=== PATIENT | female | born 1980 | race African-American/Black ===

== ENCOUNTER 2017-09-13 09:19 | Emergency (ER) | payer MEDICAID ==
[~2017-09-13] VITALS: Ht 170.2 cm; Wt 146.5 kg
[2017-09-13 09:45] VITALS: BP 126/105
--- NOTE | 2017-09-13 09:49 | NUR ---
PATIENT AMBULATED TO BED 2 AT THIS TIME.
--- NOTE | 2017-09-13 09:57 | NUR ---
37 YO F BIB SELF W/ C/O RLL PAIN W/ WOUND 6/10 AND MISHRA 8/10 X 1 MONTH, PROGRESSIVELY GETTING WORSE. HX DVT AND 2 X PE, HTN. PT A&O X 4 W/ STEADY GAIT. DENIES FEVER. NO S/S OF ACUTE DISTRESS. CMS INTACT. OPEN SORE NOTED RLL ON CALF ABOUT 2X2 CM. SKIN SURROUNDING SORE INTACT, WITH YELLOW/BROWN DISCOLORATION. PER PT SEEN AND TX W/ ANTIBIOTICS FOR CELLULITIS ABOUT 1 WEEK AGO. ER MD MONTOYA MADE AWARE OF PT STATUS. PT NEEDS MET AT THIS TIME. WILL CONTINUE TO MONITOR. Addendum: 09/13/17 at 1032 [email or web address] 37 [facility]F W/ C/O RLL PAIN W/ WOUND 6/10 AND MISHRA 8/10 X 1 MONTH, PROGRESSIVELY GETTING WORSE. HX DVT AND 2 X PE, HTN. PT A&O X 4 W/ STEADY GAIT. DENIES FEVER. NO S/S OF ACUTE RESPIRATORY DISTRESS OR CHEST PAIN. CMS INTACT. OPEN SORE NOTED RLL ON CALF ABOUT 2X2 CM. SKIN SURROUNDING SORE INTACT, WITH YELLOW/BROWN DISCOLORATION. PER PT SEEN AND TX W/ ANTIBIOTICS FOR CELLULITIS ABOUT 1 WEEK AGO. ER MD MONTOYA MADE AWARE OF PT STATUS. PT NEEDS MET AT THIS TIME. WILL CONTINUE TO MONITOR.
--- NOTE | 2017-09-13 10:06 | NUR ---
ER MD MONTOYA AT BEDSIDE EXAMINING PT.
[2017-09-13] MEDS: KETOROLAC 60 MG/2 ML VIAL IM ONE (10:23)
--- NOTE | 2017-09-13 10:25 | NUR ---
LAB AT BEDSIDE W/ PT.
[2017-09-13 10:33] LABS: BASOPHILS # (AUTO) 0.2 K/uL (0.00-0.22); BASOPHILS % (AUTO) 3.1 % (0.0-2.0); EOSINOPHILS # (AUTO) 0.3 K/uL (0-0.4); EOSINOPHILS % (AUTO) 4.7 % (0.0-4.0); HEMATOCRIT 34.2 % (36-48); HEMOGLOBIN 11.2 g/dL (12.0-16.0); LYMPHOCYTES # (AUTO) 1.2 K/uL (2.5-16.5); LYMPHOCYTES % (AUTO) 19.5 % (20.5-51.1); MEAN CORPUSCULAR HEMOGLOBIN 26 pg (27-31); MEAN CORPUSCULAR HGB CONC 33 g/dL (33-37); MEAN CORPUSCULAR VOLUME 78 fL (80-94); MONOCYTES # (AUTO) 0.6 K/uL (0.8-1.0); MONOCYTES % (AUTO) 9.3 % (1.7-9.3); NEUTROPHILS # (AUTO) 4.1 K/uL (1.8-7.7); NEUTROPHILS % (AUTO) 63.4 % (42.2-75.2); PLATELET COUNT (AUTO) 124 K/uL (140-450); RED BLOOD CELL COUNT(AUTO) 4.37 MIL/uL (4.20-5.40); RED CELL DISTRIBUTION WIDTH 19.7 % (11.6-13.7); WHITE BLOOD COUNT (AUTO) 6.4 K/uL (4.8-10.8)
[2017-09-13 10:44] LABS: ANION GAP 13.2 (8-16); CARBON DIOXIDE 26.9 mmol/L (21-32); CREATININE 0.7 mg/dL (0.6-1.3); POTASSIUM 4.1 mmol/L (3.5-5.1)
--- NOTE | 2017-09-13 12:20 | NUR ---
PT RESTING AND TALKING ON PHONE. VSS WILL CONTINUE TO MONITOR.
--- NOTE | 2017-09-13 12:42 | NUR ---
Patient discharged with v/s stable. Written and verbal after care instructions given and explained. Patient alert, oriented and verbalized understanding of instructions. Ambulatory with steady gait. All questions addressed prior to discharge. ID band removed. Patient advised to follow up with PMD. Rx of TRAMADOL, ZOFRAN, AND ABX TOPICAL CREAM given. Patient educated on indication of medication including possible reaction and side effects. Opportunity to ask questions provided and answered.
[2017-09-13 12:46] VITALS: BP 130/105
== END 2017-09-13 12:52 | disposition home or self-care (01) ==
LOC: MED 09:19
DX: Z48.01 Encounter for change or removal of surgical wound dressing (principal); M79.604 Pain in right leg; I10 Essential (primary) hypertension; Z86.718 Personal history of other venous thrombosis and embolism
CPT/HCPCS: 36415; 80048; 85025; 93971; 96372; 99285; J1885; Q0092